=== PATIENT | male | born 1965 | race Caucasian/White ===

== ENCOUNTER 2022-10-20 17:04 | Emergency (ER) | payer SELFPAY ==
[2022-10-20 17:06] VITALS: BP 140/70; PULSE 87; RESP 20; TEMP 36.5; O2SAT 94; BMI 46.6
[2022-10-20 17:28] VITALS: BMI 46.6
--- NOTE | 2022-10-20 17:28 | XR_ITS ---
PROCEDURE INFORMATION: Exam: XR Chest Exam date and time: 10/20/2022 5:46 PM Age: 57 years old Clinical indication: Shortness of breath; Additional info: SOA TECHNIQUE: Imaging protocol: Radiologic exam of the chest. Views: 1 view. COMPARISON: No relevant prior studies available. FINDINGS: Lungs: Low lung volumes. Alveolar opacities in both lung bases, left greater than right, atelectasis versus pneumonia. Pleural spaces: Left costophrenic angle blunting, partially excluded from the field of view, small basilar effusion versus pleural scarring. No pneumothorax. Heart/Mediastinum: Heart size and pulmonary vasculature grossly normal for portable AP lordotic technique. No tracheal/mediastinal shift. Bones/joints: No acute osseous abnormalities are identified. IMPRESSION: 1. Low lung volumes. 2. Bilateral basilar airspace disease, left greater than right, pneumonia versus atelectasis. 3. Small left basilar pleural effusion versus pleural scarring.
--- NOTE | 2022-10-20 17:30 | PC.NURSE ---
notified ER MD pt still having moderate retractions SaO2 95-97% on RA RR 50 per min ER MD states he is going to go back in and reassess pt and discuss POC and treatment options with pt parents
--- NOTE | 2022-10-20 17:38 | PC.NURSE ---
shaylee at for portable xray blood sent to lab at this time
[2022-10-20 17:49] LABS: Basophils # 0.2 K/mm3 (0-0.2); Basophils % 1.9 % (0.1-2.0); Eosinophils # 0.2 K/mm3 (0.0-0.4); Eosinophils % 2.1 % (0.1-12.0); Hematocrit 51.7 % (42.0-52.0); Hemoglobin 16.7 g/dL (14.1-18.0); Lymphocytes # 2.9 K/mm3 (0.7-4.5); Lymphocytes % 32.8 % (10-50); Mean Corpuscular HGB Conc 32.4 g/dL (31.8-35.4); Mean Corpuscular Hemoglobin 31.1 pg (27.0-31.2); Mean Corpuscular Volume 95.9 fl (80-94); Mean Platelet Volume 7.8 fl (7.4-10.4); Monocytes # 0.5 K/mm3 (0.1-1.0); Monocytes % 5.1 % (1.7-9.3); Neutrophils # 5.2 K/mm3 (1.8-7.8); Neutrophils % 58.1 % (37.0-80.0); Platelet Count 241 K/mm3 (142-424); Red Blood Count 5.39 M/mm3 (4.60-6.20); Red Cell Distribution Width 13.8 % (11.5-17.5); White Blood Count 8.9 K/mm3 (4.8-10.8)
[2022-10-20 17:50] LABS: Chloride 105 mmol/L (98-107); Potassium 4.1 mmoL/L (3.5-5.1); Sodium 141 mmol/L (136-145)
[2022-10-20 17:52] LABS: Bilirubin,Unconjugated 0.1 mg/dL (0.0-1.1); Blood Urea Nitrogen 17 mg/dl (9-20); Creatinine Clearance Estimated 104 mL/min (50-200); Estimated Glomerular Filt Rate 99 ml/min (>60); GFR (African American) 120 ML/MIN (>60)
[2022-10-20 17:53] LABS: Alanine Aminotransferase 41 U/L (12-78); Alkaline Phosphatase 90 U/L (38-126); Anion Gap 10.1 mEq/L (5-15); Aspartate Amino Transferase 37 U/L (17-59); Bilirubin,Direct 0.2 mg/dl (0.0-0.4); Bilirubin,Indirect 0.2 mg/dL (0.0-0.9); Bilirubin,Total 0.4 mg/dl (0.2-1.3); Calcium 9.2 mg/dl (8.4-10.2); Carbon Dioxide 30 mmol/L (22.0-30.0); Glucose 121 mg/dl (74-100); Total Protein,Serum 7.2 g/dl (6.3-8.2)
[2022-10-20 18:10] LABS: Troponin I < 0.01 ng/ml (0.00-0.034)
[2022-10-20 18:15] VITALS: BP 123/61; PULSE 81; RESP 15; O2SAT 94
--- NOTE | 2022-10-20 18:20 | PC.NURSE ---
notified ER pt reports he is having difficulty focusing his vision, state is takes him some time to focus in on things.
--- NOTE | 2022-10-20 18:21 | HMH.EDGENADL ---
Discharge Plan Disposition Chief Complaint: Shortness of Breath/Dyspnea Referrals Follow up/Referrals: Provider,MD Yonny [Primary Care Provider] - See instructions Discharge ED Provider: Kenny Srivastava General Adult HPI General Chief complaint: Shortness of Breath/Dyspnea Stated complaint: dizziness Time Seen by Provider: 10/20/22 18:20 History of Present Illness HPI narrative: Patient presents with sudden onset of dizziness, blurring of his vision and left arm discomfort that began at 330 this afternoon. That was the time that he was last known normal. He also notes left arm discomfort but denies chest pain. He's been coughing since that time. Related Data Allergies Allergy/AdvReac Type Severity Reaction Status Date / Time No Known Allergies Allergy Verified 10/20/22 17:28 PFSH PFS Social History Smoking Status: Former smoker ROS Obtained: Yes All systems reviewed & no additional complaints except as documented Physical Exam General General appearance: alert and in no apparent distress Head Head exam: atraumatic, normocephalic and normal inspection Eye Eye exam: Present normal appearance, PERRL and EOMI ENT ENT exam: Present normal exam, normal oropharynx, mucous membranes moist, TM's normal bilaterally and normal external ear exam Neck Neck exam: Present normal inspection, full ROM and trachea midline; Absent meningismus or lymphadenopathy Chest Chest inspection: Present normal inspection and symmetric chest wall rise; Absent tenderness Respiratory Respiratory exam: Present normal lung sounds bilaterally; Absent respiratory distress Cardiovascular Cardiovascular exam: Present regular rate and normal rhythm; Absent JVD Abdominal Exam Abdominal exam: Present soft and normal bowel sounds; Absent distention, tenderness or guarding Extremities Exam Extremities exam: Present normal inspection, full ROM and normal capillary refill; Absent calf tenderness Back Exam Back exam: Present normal inspection; Absent tenderness Neurological Exam Neurological exam: Present alert and oriented X3 Psychiatric Psychiatric exam: Present normal affect and normal mood Skin Skin exam: Present warm, dry, intact and normal color Lymphatic Lymphatic Findings: no adenopathy Medical Decision Making Medical Records Medical records reviewed: Yes I reviewed the patient's medical records. Richard Inquiry Pt receiving controlled substance: No Vital Signs: 10/20/22 17:06 10/20/22 18:15 Temperature 97.7 F Temperature Source Oral Pulse Rate 81 Pulse Rate [Apical] 87 Respiratory Rate 20 15 Blood Pressure 123/61 Blood Pressure [Right Arm] 140/70 Blood Pressure Mean [Right Arm] 93 Blood Pressure Source [Right Arm] Automatic Cuff Blood Pressure Position [Right Arm] Sitting 02 Sat by Pulse Oximetry 94 L 94 L Oxygen Delivery Method Room Air Lab Data Lab Results 10/20/22 17:35: WBC 8.9, RBC 5.39, Hgb 16.7, Hct 51.7, MCV 95.9 H, MCH 31.1, MCHC 32.4, RDW 13.8, Plt Count 241, MPV 7.8, Neut % (Auto) 58.1, Lymph % (Auto) 32.8, [place] % (Auto) 5.1, Eos % (Auto) 2.1, Baso % (Auto) 1.9, Neut # (Auto) 5.2, Lymph # (Auto) 2.9, [place] # (Auto) 0.5, Eos # (Auto) 0.2, Baso # (Auto) 0.2 10/20/22 17:35: Sodium 141, Potassium 4.1, Chloride 105, Carbon Dioxide 30, Anion Gap 10.1, BUN 17, Creatinine 0.80, Estimated Creat Clear 104, Estimated GFR 99, Est GFR ( Amer) 120, Glucose 121 H, Calcium 9.2, Total Bilirubin 0.4, Direct Bilirubin 0.2, Conjugated Bilirubin 0.0, Indirect Bilirubin 0.2, Unconjugated Bilirubin 0.1, AST 37, ALT 41, Alkaline Phosphatase 90, Troponin I < 0.01, Total Protein 7.2, Albumin 4.0 Result diagrams: 10/20/22 17:35 10/20/22 17:35 Orders (Tests/Meds): ED MEDICATIONS Generic Name Dose Route Start Last Admin Trade Name Freq PRN Reason Stop Dose Admin Sodium Chloride 10 ml 10/20/22 17:28 Sodium Chloride 0.9% 10ml Flush Syrin
--- NOTE | 2022-10-20 18:22 | PC.NURSE ---
HILDA LOPEZ at
--- NOTE | 2022-10-20 18:28 | CT_ITS ---
PROCEDURE INFORMATION: Exam: CTA Head With Contrast, Arteriography Exam date and time: 10/20/2022 6:40 PM Age: 57 years old Clinical indication: Stroke-like symptoms; Dizziness/giddiness; Additional info: Dizzy TECHNIQUE: Imaging protocol: Computed tomographic angiography of the head with contrast. Exam focused on the arteries. 3D rendering (Not supervised by radiologist): MIP and/or 3D reconstructed images were created by the technologist. Radiation optimization: All CT scans at this facility use at least one of these dose optimization techniques: automated exposure control; mA and/or kV adjustment per patient size (includes targeted exams where dose is matched to clinical indication); or iterative reconstruction. Contrast material: ISO 370; Contrast volume: 94 ml; Contrast route: INTRAVENOUS (IV); COMPARISON: No relevant prior studies available. FINDINGS: ANTERIOR CIRCULATION: Right internal carotid artery: Right ICA petrous segment demonstrates mild calcific plaque without stenosis. Right ICA cavernous segment demonstrates mild calcific plaque without stenosis. The right ICA supraclinoid segment is unremarkable. Right middle cerebral artery: Unremarkable. No occlusion or significant stenosis. No aneurysm. Right anterior cerebral artery: Unremarkable. No occlusion or significant stenosis. No aneurysm. The anterior communicating artery is unremarkable. Left internal carotid artery: The left ICA petrous segment is unremarkable. Mild calcific atherosclerosis in the cavernous segment without significant stenosis. Left ICA supraclinoid segment demonstrates mild calcific plaque without stenosis. Left middle cerebral artery: Unremarkable. No occlusion or significant stenosis. No aneurysm. Left anterior cerebral artery: Unremarkable. No occlusion or significant stenosis. No aneurysm. POSTERIOR CIRCULATION: Right vertebral artery: Unremarkable. No occlusion or significant stenosis. No aneurysm. Left vertebral artery: Unremarkable. No occlusion or significant stenosis. No aneurysm. Basilar artery: Unremarkable. No occlusion or significant stenosis. No aneurysm. Right posterior cerebral artery: Unremarkable. No occlusion or significant stenosis. No aneurysm. Left posterior cerebral artery: Unremarkable. No occlusion or significant stenosis. No aneurysm. Cavernous Sinus: The dural venous sinuses and major cortical veins enhance appropriately without evidence of thrombosis. Brain: No enhancing brain lesions or vascular malformations are identified. Cerebral ventricles: No ventriculomegaly. Mastoid air cells: Partially opacified inferior mastoid air cells bilaterally suggesting mild changes of mastoid inflammatory disease. Bones/joints: Unremarkable. No acute fracture. Soft tissues: Unremarkable. IMPRESSION: 1. No evidence of large vessel occlusion. No evidence of arterial dissection or aneurysm/pseudoaneurysm. 2. No acute intracranial process.
--- NOTE | 2022-10-20 18:28 | CT_ITS ---
PROCEDURE INFORMATION: Exam: CT Head Without Contrast Exam date and time: 10/20/2022 6:40 PM Age: 57 years old Clinical indication: Stroke-like symptoms; Dizziness/giddiness; Additional info: Dizzy TECHNIQUE: Imaging protocol: Computed tomography of the head without contrast. Radiation optimization: All CT scans at this facility use at least one of these dose optimization techniques: automated exposure control; mA and/or kV adjustment per patient size (includes targeted exams where dose is matched to clinical indication); or iterative reconstruction. Other technique: STROKE PROTOCOL was implemented. COMPARISON: No relevant prior studies available. FINDINGS: Brain: The IACs are grossly normal. No extra-axial fluid collections. No evidence of acute intracranial hemorrhage. No CT evidence of large territory acute or subacute intracranial ischemia/infarct. No intracranial mass lesions. No midline shift or herniation. Cerebral ventricles: Mild compensatory ventriculomegaly secondary to central atrophy. Pituitary gland and sella: The sella is grossly normal. Paranasal sinuses: Visualized paranasal sinuses are clear. Mastoid air cells: Partially opacified bilateral mastoid air cells suggesting mild mastoiditis. No gross coalescence. Orbital cavities: Visualized orbital contents demonstrate no acute abnormality. Dental: There is a 13 mm expansile cystic lesion around the root of the right 2nd incisor with anterior cortical resorption. Largely nonaggressive features. Recommend nonemergent dental referral. Bones/joints: The calvarium and visualized facial bones are intact. Soft tissues: The scalp and visualized soft tissues demonstrate no acute abnormality. Vasculature: Mild-moderate calcific atherosclerosis. No asymmetric vascular hyperdensities suggestive of thrombosis are identified. Other findings: Mild generalized atrophy. Clemente-white differentiation is well maintained. IMPRESSION: 1. No acute intracranial process. No intracranial hemorrhage or mass effect. 2. Mild changes of bilateral mastoid inflammatory disease. 3. A 13 mm expansile cystic lesion around the root of the right 2nd maxillary incisor demonstrates nonaggressive features. Recommend nonemergent dental referral. ASSESSMENT: ASPECTS ([facility] Stroke Program Early CT Score) is 10.
--- NOTE | 2022-10-20 18:28 | PC.NURSE ---
notified rad of CT order, stroke protocol per ER MD
--- NOTE | 2022-10-20 18:30 | CT_ITS ---
PROCEDURE INFORMATION: Exam: CTA Neck With Contrast Exam date and time: 10/20/2022 6:40 PM Age: 57 years old Clinical indication: Stroke-like symptoms; Dizziness/giddiness; Additional info: Dizzy TECHNIQUE: Imaging protocol: Computed tomographic angiography of the neck with contrast. 3D rendering (Not supervised by radiologist): MIP and/or 3D reconstructed images were created by the technologist. Radiation optimization: All CT scans at this facility use at least one of these dose optimization techniques: automated exposure control; mA and/or kV adjustment per patient size (includes targeted exams where dose is matched to clinical indication); or iterative reconstruction. Contrast material: ISO 370; Contrast volume: 75 ml; Contrast route: INTRAVENOUS (IV); COMPARISON: CR XR CHEST PORTABLE 10/20/2022 5:46 PM FINDINGS: Right common carotid artery: Normal. No stenosis. No dissection or occlusion. Right internal carotid artery: Normal. No stenosis. No dissection or occlusion. Right external carotid artery: Normal. No stenosis. No dissection or occlusion. Left common carotid artery: Normal variant origin from the brachiocephalic artery. No stenosis. No dissection or occlusion. Left internal carotid artery: Mild tortuosity. Mild calcific plaque in the proximal segment. No stenosis. No dissection or occlusion. Left external carotid artery: Normal. No stenosis. No dissection or occlusion. Right vertebral artery: Normal. No stenosis. No dissection or occlusion. Left vertebral artery: Normal. No stenosis. No dissection or occlusion. Brachiocephalic artery: The brachiocephalic artery demonstrates mild calcific plaque without stenosis. Right subclavian artery: The right subclavian artery demonstrates mild calcific plaque without stenosis. Left subclavian artery: The left subclavian artery demonstrates mild calcific plaque without stenosis. Aorta: The visualized aortic arch demonstrates mild ectasia and calcific plaque without evidence of dissection or gross aneurysm. Thyroid: The thyroid gland is unremarkable. Soft tissues: No significant soft tissue swelling or hematoma. Bones/joints: No acute osseous abnormalities are identified. Moderate midthoracic spondylosis. Lungs: Mild atelectasis in the posterior left upper lobe. IMPRESSION: No evidence of arterial stenosis, occlusion, dissection, or aneurysm/pseudoaneurysm. REFERENCES: NASCET CRITERIA. The degree of stenosis in the cervical segment of the internal carotid artery is based on NASCET criteria. Normal is no stenosis. Mild is less than 50% stenosis. Moderate is 50-69% stenosis. Severe is 70% to 99% stenosis. Total occlusion is no detectable patent lumen.
--- NOTE | 2022-10-20 18:35 | PC.NURSE ---
pt to CT at this time
--- NOTE | 2022-10-20 18:49 | PC.NURSE ---
pt return from CT pt up to restroom at this time
--- NOTE | 2022-10-20 19:10 | PC.NURSE ---
HILDA LOPEZ speaking with raghavendra
--- NOTE | 2022-10-20 19:18 | PC.NURSE ---
Dr Srivastava is speaking with [employer] at this time.
--- NOTE | 2022-10-20 19:32 | PC.NURSE ---
per evelyne in care management states than an inpt MRI can be done tomorrow if pt is admitted
--- NOTE | 2022-10-20 20:07 | PC.NURSE ---
hospitalist declined admission ER MD speaking with [facility] again at this time
--- NOTE | 2022-10-20 20:10 | PC.NURSE ---
pt accepted to pending bed assignment on neuro floor per ER MD ER MD at at this time updating POC
--- NOTE | 2022-10-20 20:18 | PC.NURSE ---
shift change report given to asifrn
--- NOTE | 2022-10-20 20:19 | PC.NURSE ---
call radiology to request disc
--- NOTE | 2022-10-20 20:20 | PC.NURSE ---
per Dr. Srivastava pt can be transported POV when bed assignment is available.
[2022-10-20 20:32] LABS: Coronavirus 19, PCR Not Detected (NotDetected); Influenza A, PCR Not Detected (NotDetected); Influenza B, PCR Not Detected (NotDetected)
[2022-10-20 21:42] LABS: Troponin I < 0.01 ng/ml (0.00-0.034)
[2022-10-20 22:02] VITALS: BP 116/59; PULSE 80; O2SAT 95
[2022-10-20 22:31] VITALS: BP 116/59; PULSE 76; RESP 18; TEMP 36.5; O2SAT 95
--- NOTE | 2022-10-21 10:37 | PC.NURSE ---
Marta from called concerned about patient not making it up to as of today at 08:39. She asked if we would try to contact the patient to see if he is still planning to come. I called his phone number and no answer x 2. I called his daughter and she was aware of his situation and reports he is refusing to be admitted to the hospital due to not having any insurance. He also reports he dis-agreed with the Dr regarding his diagnosis. His daughter reports she has tried to talk to him about the seriousness of his condition and she reports he understands. She also states she has physically talked to him this morning and is about to go to his hotel room to see him. She appreciates us calling and checking in on him. I called Marta back at and they are taking him off the bed assignment list at this time.
--- NOTE | 2022-10-21 17:28 | ECG_ITS ---
APPROVED REPORT Exam: Resting ECG HR:83 bpm ECG Measurements Heart Rate 83 AXES NH 159 P 59 QRSd 89 QRS -56 QT 342 T 67 QTc 382 Conclusion SINUS RHYTHM LEFT ANTERIOR FASCICULAR BLOCK [QRS AXIS <= -45, QR IN I, RS IN II] ABNORMAL ECG UNCONFIRMED REPORT Electronically signed by : Jersey Pierre MD 10/21/2022 21:11:47
== END 2022-10-20 22:37 | disposition other institution (70) ==
PROVIDERS: Emergency Provider Emergency Medicine
DX: R42 Dizziness and giddiness (principal); R06.02 Shortness of breath; R05.9 Cough, unspecified; Z20.822 Contact with and (suspected) exposure to COVID-19; Z87.891 Personal history of nicotine dependence
CPT/HCPCS: 70450; 70496; 70498; 71045; 80048; 80076; 84484; 85025; 93005; 96374; 99285; C9803; J0456; J0696; Q9967; U0003; U0005